=== PATIENT | male | born 1985 | race Two or more races ===

== ENCOUNTER 2016-07-29 20:59 | Emergency (ER) | payer OTHER ==
[~2016-07-29] VITALS: Ht 175.3 cm; Wt 70.3 kg
[2016-07-29 21:30] VITALS: BP 122/82
== END 2016-07-29 23:14 | disposition home or self-care (01) ==
LOC: ER 20:59
DX: S82.891A Other fracture of right lower leg, initial encounter for closed fracture (principal); S93.401A Sprain of unspecified ligament of right ankle, initial encounter; X58.XXXA Exposure to other specified factors, initial encounter; Y93.89 Activity, other specified; Y99.8 Other external cause status; Y92.89 Other specified places as the place of occurrence of the external cause
CPT/HCPCS: 29515; 73610

== ENCOUNTER 2021-06-19 17:28 | Emergency (ER) | payer BC, MEDICAID ==
[~2021-06-19] VITALS: Ht 175.3 cm; Wt 63.5 kg
[2021-06-19 19:35] VITALS: BP 108/62
[2021-06-19] MEDS ORDERED: METH500T22 PO (19:39)
[2021-06-19] MEDS ORDERED: IBUP800T27 PO (19:39)
== END 2021-06-19 19:57 | disposition home or self-care (01) ==
LOC: EDBD 17:28 → ER 17:28
DX: S39.012A Strain of muscle, fascia and tendon of lower back, initial encounter (principal); M79.18 Myalgia, other site; X58.XXXA Exposure to other specified factors, initial encounter; Y93.89 Activity, other specified; Y92.89 Other specified places as the place of occurrence of the external cause; Y99.8 Other external cause status
CPT/HCPCS: 72100